=== PATIENT | female | born 1960 | race Caucasian/White ===

== ENCOUNTER 2018-10-25 07:48 | Day surgery (SDC) ==
[2018-10-25 08:47] VITALS: TEMP 98.6
[2018-10-25] MEDS ORDERED: LIDOCAINE 1% 20 ML MDV ID STA (08:47)
[2018-10-25] MEDS ORDERED: DIPRIVAN 20 ML VIAL IVP ONE (09:39)
[2018-10-25 13:41] VITALS: BP 129/58
--- NOTE | 2018-10-26 10:08 | OP ---
INDICATIONS FOR PROCEDURE: 58-year-old female presents for screening colonoscopy exam. She does have a family history of colon polyps involving a sister in her 50's. MEDICATIONS: SEE ANESTHESIA NOTES. PROCEDURE: COLONOSCOPY. REPORT: The risks, benefits, alternatives and limitations were discussed in detail with the patient. Informed consent was obtained. After adequate sedation was achieved, a digital rectal exam revealed good tone, no masses. The colonoscope was introduced into the rectum and advanced under direct visual guidance to the cecum. The cecum was identified by the appendiceal orifice and IC valve. I then slowly withdrew the scope in circumferential manner examining the mucosa quite carefully. I looked on the proximal and distal side of folds and flexures as best as possible. As I withdrew the scope I noted no abnormalities other than diverticulosis in the sigmoid. There were several small mouth diverticula scattered throughout the sigmoid. No other abnormalities were noted including on retroflex view of the anal canal. The prep was adequate. The withdrawal time was 12 minutes and 22 seconds. The patient tolerated the procedure well with stable vital signs and pulse oximetry throughout. IMPRESSION: 1. Diverticulosis RECOMMENDATIONS: 1. High fiber diet. 2. Office visit as needed. 3. Screening colon examination again in 5 years based on her family history, sooner if there are any signs or symptoms to indicate otherwise. CC: DR. RIKA [address]RE[address]
== END 2018-10-25 11:20 | disposition home or self-care (01) ==
LOC: SURG 07:48
PROVIDERS: ATTEND Internal Medicine Gastroenterology
DX: Z12.11 Encounter for screening for malignant neoplasm of colon (principal); K57.30 Diverticulosis of large intestine without perforation or abscess without bleeding